=== PATIENT | female | born 1965 | race Caucasian/White ===

== ENCOUNTER 2017-08-30 12:09 | Emergency (ER) | payer OTHER | END 2017-08-30 13:08 | disposition home or self-care (01) | LOC: FTE 12:09 → E/R 13:08 | DX: S99.922A Unspecified injury of left foot, initial encounter (principal); W23.1XXA Caught, crushed, jammed, or pinched between stationary objects, initial encounter; Y92.9 Unspecified place or not applicable | CPT/HCPCS: 73660; 99283-25 ==

== ENCOUNTER 2018-06-27 15:33 | Emergency (ER) | payer OTHER | END 2018-06-27 17:06 | disposition home or self-care (01) | LOC: E/R 15:33 | DX: L98.9 Disorder of the skin and subcutaneous tissue, unspecified (principal) | CPT/HCPCS: 99283 ==